=== PATIENT | female | born 1950 | race Caucasian/White ===

== ENCOUNTER → 2017-03-11 | Outpatient (CLI) | payer MEDICARE, BC ==
--- NOTE | 2017-03-11 11:38 | RADRPT ---
PROCEDURE: XR right knee. CLINICAL INDICATION: Knee pain TECHNIQUE: AP weightbearing, PA weightbearing, lateral weightbearing and sunrise views are availab le for review. COMPARISON: None available FINDINGS: There is moderate osteoarthrosis involving the medial tibial femoral compartment, lateral tibial fem oral compartment and patellofemoral compartment. This is associated with joint space narrowing, subc hondral sclerosis and osteophytosis. There is otherwise normal mineralization, architecture and alignment. No fractures are identified. No osseous lesions are identified. The soft tissues are unremarkable. IMPRESSION: Moderate osteoarthrosis involving the medial tibial femoral compartment, lateral tibial femoral comp artment and patellofemoral compartment. RPTAT: [facility] .Jaswinder Hough MD, MD Date Time Electronically viewed and signed by .Jaswinder Hough MD, on 03/11/2017 11:38 .B/
== END | disposition home or self-care (01) ==
LOC: HKI 08:58
PROVIDERS: ATTEND Orthopaedic Surgery
DX: M25.561 Pain in right knee (principal); M17.11 Unilateral primary osteoarthritis, right knee
CPT/HCPCS: 73564; G0463